=== PATIENT | female | born 1985 | race Hispanic/Latino ===

== ENCOUNTER 2020-01-14 17:20 | Emergency (ER) | payer BC ==
[~2020-01-14 17:20] MED LIST: LAMO100T16 PO; LEVO100T12 PO
[2020-01-14 17:58] LABS: BASOPHILS % (AUTO) 0.3 % (0.0-5.0); EOSINOPHILS % (AUTO) 1.1 % (0.0-8.0); HEMATOCRIT 37.1 % (36-48); MEAN CORPUSCULAR HEMOGLOBIN 30.5 pg (27.0-33.0); MEAN CORPUSCULAR VOLUME 87.1 fL (79-99); MONOCYTES % (AUTO) 6.4 % (3.0-13.0); NEUTROPHILS % (AUTO) 57.9 % (40.0-77.0); PLATELET COUNT (AUTO) 275 K/uL (130-400); RED BLOOD CELL COUNT(AUTO) 4.26 MIL/uL (4.00-5.50); RED CELL DISTRIBUTION WIDTH 12.8 % (11.0-15.5); WHITE BLOOD COUNT (AUTO) 6.6 K/uL (4.8-10.8)
== END 2020-01-14 20:01 | disposition home or self-care (01) ==
LOC: EDH 17:20
DX: O03.9 Complete or unspecified spontaneous abortion without complication (principal); Z90.49 Acquired absence of other specified parts of digestive tract
CPT/HCPCS: 36415; 76817; 84702; 85025; 86900; 86901

== ENCOUNTER 2021-07-05 06:40 | Inpatient (IN) | payer BC ==
[~2021-07-05] VITALS: Ht 157.5 cm; Wt 73.5 kg
[2021-07-05 07:24] LABS: APPEARANCE,URINE Cloudy (CLEAR); BILIRUBIN,URINE Negative (NEGATIVE); COLOR,URINE Yellow (YELLOW); GLUCOSE, URINE (UA) Negative (NEGATIVE); KETONES,URINE Negative (NEGATIVE); LEUKOCYTE ESTERASE ,URINE Moderate (NEGATIVE); NITRATE,URINE Negative (NEGATIVE); OCCULT BLOOD,URINE Negative (NEGATIVE); PROTEIN,URINE Negative (NEGATIVE)
[2021-07-05] MEDS ORDERED: NALOXONE HCL 0.4 MG/1 ML ML IV PRN (07:30)
[2021-07-05] MEDS ORDERED: ROPIVACAINE 0.2% 100ML VIAL 100 ML EP SCH (07:30)
[2021-07-05] MEDS ORDERED: PROMETHAZINE HCL 25 MG/ML 1ML AMPULE IM PRN (07:30)
[2021-07-05] MEDS ORDERED: EPHEDRINE SULFATE 50 MG/ML AMPULE IVP PRN (07:30)
[2021-07-05] MEDS ORDERED: OXYTOCIN-LR 20 UNITS/1000 ML 1,000 ML IV SCH ×2 (07:30→16:00)
[2021-07-05] MEDS ORDERED: MEPERIDINE-PF 50 MG/ML SYG IVP PRN (07:30)
[2021-07-05] MEDS ORDERED: LACTATED RINGERS 500 ML 500 ML IV PRN (07:30)
[2021-07-05 07:43] LABS: HEMATOCRIT 29.7 % (36-48); MEAN CORPUSCULAR HGB CONC 32.7 g/dL (32.0-36.0); MEAN CORPUSCULAR VOLUME 85.6 fL (79-99); RED BLOOD CELL COUNT(AUTO) 3.47 MIL/uL (4.00-5.50); RED CELL DISTRIBUTION WIDTH 13.9 % (11.0-15.5); WHITE BLOOD COUNT (AUTO) 6.4 K/uL (4.8-10.8)
[2021-07-05 08:06] LABS: BACTERIA,URINE Few /HPF (None Seen); RBC,URINE 0-1 /HPF (0-1); SQUAMOUS EPITHELIAL CELL,UR Many /HPF (0-2)
[2021-07-05] MEDS: LACTATED RINGERS 1000ML 1,000 ML IV PRN ×2 (08:08→11:08)
[2021-07-05 08:23] VITALS: BP 110/65
[2021-07-05] MEDS ORDERED: PHARMACY COMMUNICATION MISC SCH (08:30)
[2021-07-05] MEDS ORDERED: LAMOTRIGINE 100 MG TABLET PO SCH (10:00)
[2021-07-05] MEDS: LAMOTRIGINE 400 MG PO SCH ×2 (10:27→22:24)
[2021-07-05] MEDS ORDERED: METHYLERGONOVINE MALEATE 0.2 MG/1 ML ML ONE (14:52)
[2021-07-05] MEDS: OXYTOCIN-LR 20 UNITS/1000 ML 1,000 ML IV SCH ×2 (15:21→16:10)
[2021-07-05] MEDS ORDERED: MISOPROSTOL 200 MCG TABLET ONE (15:28)
[2021-07-05] MEDS ORDERED: BENZOCAINE/LANOLIN/ALOE VERA 60 ML AEROSOL TP PRN (16:00)
[2021-07-05] MEDS ORDERED: LANOLIN 30GM OINTMENT TP PRN (16:00)
[2021-07-05] MEDS ORDERED: MEASLES/MUMPS/RUBELLA VACCINE, LIVE 0.5 ML/VIAL SQ PRN (16:00)
[2021-07-05] MEDS ORDERED: DIPH,PERTUSS(ACELL),TET VAC/PF 0.5 ML VIAL IM PRN (16:00)
[2021-07-05] MEDS ORDERED: WITCH HAZEL 1 PAD TP PRN (16:00)
[2021-07-05] MEDS ORDERED: ACETAMINOPHEN WITH CODEINE 1 TAB TAB PO PRN (16:00)
[2021-07-05] MEDS ORDERED: ACETAMINOPHEN 325 MG TAB PO PRN (16:00)
[2021-07-05] MEDS ORDERED: MISOPROSTOL 200 MCG TABLET VG SCH (16:30)
[2021-07-05] MEDS ORDERED: METHYLERGONOVINE MALEATE 0.2 MG/1 ML ML IM SCH (16:30)
[2021-07-05 18:16] VITALS: BP 137/82
[2021-07-05 19:27] VITALS: BP 127/90
[2021-07-05] MEDS: IBUPROFEN 600 MG TABLET PO PRN (20:05)
[2021-07-05] MEDS: DOCUSATE SODIUM 100 MG CAP PO SCH (21:22)
[2021-07-05 23:16] VITALS: BP 127/81
[2021-07-06 04:19] VITALS: BP 138/80
[2021-07-06] MEDS: IBUPROFEN 600 MG TABLET PO PRN (05:39)
[2021-07-06] MEDS ORDERED: LEVOTHYROXINE 125 MCG TABLET PO SCH (06:30)
[2021-07-06 07:10] VITALS: BP 101/65
[2021-07-06 08:14] LABS: HEPATITIS Bs ANTIGEN SCREEN P Negative (Negative)
[2021-07-06] MEDS: DOCUSATE SODIUM 100 MG CAP PO SCH (09:19)
[2021-07-06] MEDS: LAMOTRIGINE 400 MG PO SCH (10:15)
[2021-07-06 11:09] VITALS: BP 115/79
[2021-07-06 16:14] VITALS: BP 123/71
== END 2021-07-06 16:55 | disposition home or self-care (01) | DRG 807 ==
LOC: LDH 06:40 → WSH 18:06 → PREOBSVTOIN 07-19 06:38
PROVIDERS: ADMIT Specialist; ATTEND Specialist
PROC: 10E0XZZ Delivery of Products of Conception, External Approach (ICD-10-PCS; principal; 2021-07-05)
PROC: 0W8NXZZ Division of Female Perineum, External Approach (ICD-10-PCS; 2021-07-05)
PROC: 3E033VJ Introduction of Other Hormone into Peripheral Vein, Percutaneous Approach (ICD-10-PCS; 2021-07-05)
PROC: 10907ZC Drainage of Amniotic Fluid, Therapeutic from Products of Conception, Via Natural or Artificial Opening (ICD-10-PCS; 2021-07-05)
PROC: 3E0P7GC Introduction of Other Therapeutic Substance into Female Reproductive, Via Natural or Artificial Opening (ICD-10-PCS; 2021-07-05)
PROC: 3E0R3BZ Introduction of Anesthetic Agent into Spinal Canal, Percutaneous Approach (ICD-10-PCS; 2021-07-05)
PROC: 00HU33Z Insertion of Infusion Device into Spinal Canal, Percutaneous Approach (ICD-10-PCS; 2021-07-05)
DX: O99.354 Diseases of the nervous system complicating childbirth (principal); Z37.0 Single live birth; Z3A.38 38 weeks gestation of pregnancy; G40.909 Epilepsy, unspecified, not intractable, without status epilepticus; O99.284 Endocrine, nutritional and metabolic diseases complicating childbirth; E03.9 Hypothyroidism, unspecified
CPT/HCPCS: 36415; 81001; 85027; 86592; 86850; 86900; 86901; 87088; 87340; A4314; A4351; G0378; J2210; J2590; J2795; J7120

== ENCOUNTER 2024-06-13 22:13 | Inpatient (IN) | payer BC ==
[~2024-06-13] VITALS: Ht 157.5 cm; Wt 77.1 kg
[2024-06-13] MEDS ORDERED: LACTATED RINGERS 500 ML 500 ML IV PRN (22:30)
[2024-06-13] MEDS ORDERED: PROMETHAZINE HCL 25 MG/ML 1ML AMPULE IM PRN (22:30)
[2024-06-13] MEDS ORDERED: ePHEDrine SULFate 50 MG/ML AMPULE IVP PRN (22:30)
[2024-06-13] MEDS ORDERED: MEPERIDINE-PF 50 MG/ML SYG IVP PRN (22:30)
[2024-06-13] MEDS ORDERED: NALoxone HCL 0.4 MG/1 ML ML IV PRN (22:30)
[2024-06-13 23:01] LABS: APPEARANCE,URINE CLOUDY (CLEAR); BILIRUBIN,URINE NEGATIVE (NEGATIVE); COLOR,URINE LIGHT-YELLOW (YELLOW); GLUCOSE, URINE (UA) NEGATIVE (NEGATIVE); KETONES,URINE NEGATIVE (NEGATIVE); LEUKOCYTE ESTERASE ,URINE 500 Leu/uL (NEGATIVE); NITRATE,URINE NEGATIVE (NEGATIVE); PROTEIN,URINE 10 mg/dL (NEGATIVE); UROBILINOGEN,URINE 0.2 mg/dL (0.2-1.0)
[2024-06-13 23:07] LABS: HEMATOCRIT 32.6 % (36-48); MEAN CORPUSCULAR HEMOGLOBIN 30.5 pg (27.0-33.0); MEAN CORPUSCULAR HGB CONC 34.7 g/dL (32.0-36.0); MEAN CORPUSCULAR VOLUME 87.9 fL (79-99); RED BLOOD CELL COUNT(AUTO) 3.71 MIL/uL (4.00-5.50); RED CELL DISTRIBUTION WIDTH 14.2 % (11.0-15.5); WHITE BLOOD COUNT (AUTO) 6.9 K/uL (4.8-10.8)
[2024-06-13 23:39] LABS: ADD UA MICROSCOPIC YES
[2024-06-13 23:56] LABS: BACTERIA,URINE MANY /HPF (None Seen); MUCUS,URINE RARE LPF (None Seen); SQUAMOUS EPITHELIAL CELL,UR MANY /HPF (0-2); WBC,URINE >100 /HPF (0-1)
[2024-06-14 00:02] LABS: HIV 1&2 ANTIBODY Non-Reactive (Negative); HIV-1 p24 Antigen Non-Reactive (Negative)
[2024-06-14] MEDS: LACTATED RINGERS 1000ML 1,000 ML IV PRN (03:55)
[2024-06-14] MEDS ORDERED: FENTanyl CITRate PF 50 MCG/1 ML 2ML VIAL ONE (11:21)
[2024-06-14 11:29] LABS: RAPID PLASMA REAGIN NONREACTIVE (NONREACTIVE)
[2024-06-14] MEDS ORDERED: MISOPROSTOL 200 MCG TABLET ONE (13:22)
[2024-06-14] MEDS: MISOPROSTOL 200 MCG TABLET PR SCH (13:29)
[2024-06-14] MEDS ORDERED: acetaMINOPHEN WITH coDEINE 1 TAB TAB PO PRN (14:00)
[2024-06-14] MEDS ORDERED: LANOLIN 30GM OINTMENT TP PRN (14:00)
[2024-06-14] MEDS ORDERED: DIPH,PERTUSS(ACELL),TET VAC/PF 0.5 ML VIAL IM PRN (14:00)
[2024-06-14] MEDS ORDERED: MEASLES/MUMPS/RUBELLA VACCINE, LIVE 0.5 ML/VIAL SQ PRN (14:00)
[2024-06-14 16:10] VITALS: BP 120/61; PULSE 89; RESP 20; TEMP 98.2
[2024-06-14] MEDS: BENZOCAINE/LANOLIN/ALOE VERA 60 ML AEROSOL TP PRN (16:26)
[2024-06-14] MEDS: WITCH HAZEL 1 PAD TP PRN (16:26)
[2024-06-14] MEDS: ibuPROFEN 600 MG TABLET PO PRN (16:27)
[2024-06-14] MEDS: FLU VACC TS2024-25(6MOS UP)/PF 45 MCG/0.5 ML ML IM ONE (16:36)
[2024-06-14] MEDS ORDERED: PREN1TAB80 PO (16:57)
[2024-06-14] MEDS ORDERED: [UNRECOGNIZED DRUG - REMARK] MISC SCH ×2 (17:30)
[2024-06-14 19:14] VITALS: BP 135/91; PULSE 95; RESP 20; TEMP 98.3
[2024-06-14] MEDS: doCUSate SODIUM 100 MG CAP PO SCH (19:33)
[2024-06-14] MEDS: acetaMINOPHEN 325 MG TAB PO PRN (19:47)
[2024-06-14] MEDS: LAMOTRIGINE PO SCH (19:49)
[2024-06-14 23:14] VITALS: BP 108/69; PULSE 77; RESP 20; TEMP 98.2
[2024-06-15 04:10] VITALS: BP 134/78; PULSE 69; RESP 20; TEMP 98.1
[2024-06-15] MEDS: levoTHYROxine 112 MCG TABLET PO SCH (06:06)
[2024-06-15 06:27] LABS: HEMATOCRIT 31.6 % (36-48); MEAN CORPUSCULAR HEMOGLOBIN 30.5 pg (27.0-33.0); MEAN CORPUSCULAR HGB CONC 34.5 g/dL (32.0-36.0); MEAN CORPUSCULAR VOLUME 88.5 fL (79-99); RED BLOOD CELL COUNT(AUTO) 3.57 MIL/uL (4.00-5.50); RED CELL DISTRIBUTION WIDTH 14.1 % (11.0-15.5); WHITE BLOOD COUNT (AUTO) 8.4 K/uL (4.8-10.8)
[2024-06-15 07:30] VITALS: BP 111/75; PULSE 79; RESP 18; TEMP 97.8
[2024-06-15 12:00] VITALS: BP 125/81; PULSE 74; RESP 18; TEMP 98
== END 2024-06-15 14:50 | disposition home or self-care (01) | DRG 806 ==
LOC: LDH 22:13 → WSH 06-14 16:10
PROVIDERS: ADMIT Internal Medicine; ATTEND Internal Medicine
PROC: 10E0XZZ Delivery of Products of Conception, External Approach (ICD-10-PCS; principal; 2024-06-14)
PROC: 0KQM0ZZ Repair Perineum Muscle, Open Approach (ICD-10-PCS; 2024-06-14)
PROC: 10907ZC Drainage of Amniotic Fluid, Therapeutic from Products of Conception, Via Natural or Artificial Opening (ICD-10-PCS; 2024-06-14)
PROC: 3E0R3BZ Introduction of Anesthetic Agent into Spinal Canal, Percutaneous Approach (ICD-10-PCS; 2024-06-14)
PROC: 00HU33Z Insertion of Infusion Device into Spinal Canal, Percutaneous Approach (ICD-10-PCS; 2024-06-14)
PROC: 3E02340 Introduction of Influenza Vaccine into Muscle, Percutaneous Approach (ICD-10-PCS; 2024-06-14)
DX: O70.1 Second degree perineal laceration during delivery (principal); O72.1 Other immediate postpartum hemorrhage; Z37.0 Single live birth; Z3A.38 38 weeks gestation of pregnancy; G40.909 Epilepsy, unspecified, not intractable, without status epilepticus; E03.9 Hypothyroidism, unspecified; Z23 Encounter for immunization
CPT/HCPCS: 36415; 81001; 85027; 86592; 86701; 86850; 86900; 86901; 87086; 87340; 87390; 88305; A4314; A4351; G0008; G0378; J2795; J3010; Q2035; Q2038